=== PATIENT | male | born 1950 | race Caucasian/White ===

== ENCOUNTER 2018-02-18 07:00 | Observation (INO) | payer MEDICARE ==
[2018-02-18] MEDS ORDERED: Nitroglycerin 0.4 MG TAB (25 Tab Bottle) ONE (07:16)
[2018-02-18] MEDS ORDERED: Nitroglycerin 2% Ointment 1 INCH/1 GM Packet ONE (07:16)
[2018-02-18] MEDS ORDERED: Acetaminophen 500 MG TAB ONE (07:23)
[2018-02-18 07:35] LABS: #Basophils 0.1 thou/uL (0.0-0.2); #Eosinphils 0.2 thou/uL (0.0-0.7); #Lymphocytes 1.9 thou/uL (1.20-3.40); #Monocytes 0.6 thou/uL (0.11-0.59); #Neutrophils 8.6 thou/uL (1.40-6.50); %Basophils 1.1 % (0.0-1.0); %Eosinophils 1.7 % (0.0-10.0); %Lymphocytes 16.7 % (21.0-51.0); %Monocytes 5.5 % (0.0-10.0); %Neutrophils 75.1 % (42.0-75.0); Hemoglobin 15.7 g/dL (14.0-18.0); Mean Corpuscular Volume 87.9 fL (78.0-98.0); Mean Platelet Volume 9.5 fL (7.4-10.4); Platelet Count 219 thou/uL (130-400); RBC Distribution Width 11.3 % (11.5-14.5); Red Blood Cell (RBC) Count 5.41 mill/uL (4.70-6.10); White Blood Cell (WBC) Count 11.5 thou/uL (4.8-10.8)
[2018-02-18 07:47] LABS: CK (CPK) 97 U/L (30-200); Lipase 199 U/L (8-78)
[2018-02-18 07:52] LABS: ALT (SGPT) 25 U/L (8-55); AST (SGOT) 24 U/L (5-34); Albumin 4.5 g/dL (3.4-4.8); Alkaline Phosphatase 68 U/L (40-150); Anion Gap 17 mmol/L (10-20); BUN (Urea Nitrogen) 12 mg/dL (8.4-25.7); Bilirubin, Total 0.6 mg/dL (0.2-1.2); Calc. Creatinine Clearance 0 mL/min (70-130); Calcium 9.4 mg/dL (7.8-10.44); Carbon Dioxide 23 mmol/L (23-31); Chloride 106 mmol/L (98-107); Estimated GFR-MDRD Greater than 90; Globulin 2.5 g/dL (2.4-3.5); Glucose 99 mg/dL (80-115); Potassium 4.5 mmol/L (3.5-5.1); Sodium 141 mmol/L (136-145)
--- NOTE | 2018-02-18 08:03 | RAD ---
CHEST ONE VIEW: HISTORY: Chest pain. COMPARISON: Radiograph from 08/22/2016. FINDINGS: The lungs are clear. No pneumothorax or effusion. The cardiac silhouette and mediastinal contours a re within normal limits. No acute osseous abnormality. IMPRESSION: No acute intrathoracic abnormality. POS: [facility]
[2018-02-18] MEDS ORDERED: Morphine 4 MG/ML VIAL ONE (09:37)
[2018-02-18] MEDS ORDERED: ADENOSINE 60 MG/20 ML VIAL ONE (11:48)
[2018-02-18 12:16] LABS: Troponin I Less than 0.010 ng/mL (< 0.028)
[2018-02-18] MEDS ORDERED: Ondansetron PF 4 MG/2 ML Vial IVP PRN (13:41)
[2018-02-18] MEDS ORDERED: Ondansetron ODT 4 MG TAB SL PRN (13:41)
[2018-02-18] MEDS ORDERED: Acetaminophen 325 MG TAB PO PRN (13:41)
[2018-02-18] MEDS ORDERED: D5 1/2 NS w/20 mEq KCL 1,000 ML IV SCH (13:45)
[2018-02-18 15:39] LABS: Troponin I Less than 0.010 ng/mL (< 0.028)
--- NOTE | 2018-02-18 19:38 | NM ---
NUCLEAR MEDICINE CARDIAC STRESS WITH EF AND WALL MOTION: HISTORY: Chest pain. COMPARISON: None. TECHNIQUE: The patient was administered 9 millicuries of technetium 99m sestamibi for rest imaging and 29 millic uries of technetium 99m sestamibi for stress imaging. Cardiac gating was performed. FINDINGS: There is reversibility involving the mid to basal portion of the lateral wall. TID is 1.06. End-diastolic volume is 88 mL. End-systolic volume if 26 mL. CARDIAC GATING: Normal wall motion. Normal wall thickening. EJECTION FRACTION: 70%. IMPRESSION: 1. Reversibility involving the mid to basal portion of the lateral wall of the left ventricle. 2. Ejection fraction 70%. POS: [facility]
[2018-02-18] MEDS ORDERED: ALPRAZolam 0.5 MG TAB PO SCH ×2 (21:00)
[2018-02-18] MEDS ORDERED: Atorvastatin Calcium 40 MG TAB PO SCH (21:00)
[2018-02-19 08:36] VITALS: BP 152/93; TEMP 98.5
[2018-02-19] MEDS ORDERED: OMEGA PO SCH (09:00)
[2018-02-19] MEDS ORDERED: Non-Formulary Item 1 EACH (Multivitamin [Multivitamins] 1 TAB) PO SCH (09:00)
[2018-02-19] MEDS ORDERED: FISH OIL PO SCH (09:00)
[2018-02-19] MEDS ORDERED: [UNRECOGNIZED DRUG - OTHER] PO SCH (09:00)
[2018-02-19] MEDS ORDERED: Fish Oil 1,000 MG CAP PO SCH (09:00)
[2018-02-19] MEDS ORDERED: Aspirin 81 mg Enteric Coated Tablet PO SCH (09:00)
[2018-02-19] MEDS ORDERED: FATTY ACIDS PO SCH (09:00)
[2018-02-19] MEDS ORDERED: Multivit, Therapeutic 1 TAB PO SCH (09:00)
[2018-02-19] MEDS ORDERED: Clopidogrel Bisulfate 75 MG TAB PO SCH (09:00)
--- NOTE | 2018-02-19 11:26 | CON ---
DATE OF CONSULTATION: REASON FOR CONSULTATION: Chest pain. HISTORY OF PRESENT ILLNESS: Mr. Colon is a pleasant 67-year-old gentleman, who was seen and evaluated in the past. He has a history of unstable angina with stent placement to the LAD. He had a chronically occluded diagonal branch present. This is noted a year and a half ago. From a CV standpoint, he states he developed chest pain on . The pain has been constant. He states he pushed himself outdoors and feels like he had a strain. The pain has been constant. It is slowly improving. His CKs and troponins were negative. His recent stress study was performed due to atypical symptoms and previous history of coronary artery disease, it suggested ischemia to the base to mid lateral wall in a small distribution. PAST MEDICAL HISTORY: As above including hyperlipidemia, hypertension, tonsillectomy, and previous stent placement. HOME MEDICATIONS: Include, 1. Zantac. 2. Aspirin. 3. Atorvastatin. 4. Plavix. 5. Metoprolol. ALLERGIES: CIPRO. SOCIAL HISTORY: No current tobacco or alcohol use. REVIEW OF SYSTEMS: A 10-point review of systems is reviewed and as above, otherwise negative. PHYSICAL EXAMINATION: GENERAL: Patient is a pleasant male, who is in no acute distress. The patient appears their stated age. VITAL SIGNS: Blood pressure 152/93, pulse 62, and temperature 98.5. NEUROLOGIC: The patient is alert and oriented x3 with no focal neurologic deficits. HEENT: Sclerae without icterus. Mouth has moist mucous membranes with normal pallor. NECK: No JVD. Carotid upstroke brisk. No bruits bilaterally. LUNGS: Clear to auscultation with unlabored respirations. BACK: No scoliosis or kyphosis. CARDIAC: Regular rate and rhythm with normal S1 and S2. No S3 or S4 noted. No significant rubs, murmurs, thrills, or gallops noted throughout the precordium. PMI is not displaced. There is no parasternal heave. ABDOMEN: Soft, nontender, nondistended. No peritoneal signs present. No hepatosplenomegaly. No abnormal striae. EXTREMITIES: 2+ femoral and 2+ dorsalis pedis pulses. No cyanosis, clubbing, or edema. SKIN: No gross abnormalities. PERTINENT LABORATORY DATA: CK and troponin negative. IMPRESSION: 1. Atypical chest pain. 2. Abnormal stress test. RECOMMENDATIONS: Mr. Colon's symptoms are not suggestive of angina. His stress study did suggest ischemia to the basal to mid lateral wall in a small area, likely representing chronic occlusion to the lateral wall. Given that his symptoms are felt to be atypical, I would recommend medical therapy. His symptoms have improved. He states he feels well. May consider low-dose Imdur with close outpatient followup. He has a followup appointment with me on March 07. Otherwise, continue current medical therapy. Job ID: [id number]
--- NOTE | 2018-02-19 14:57 | STRESS ---
Acquisition Time: 2018-02-18 17:23:00 Total Exercise Time: 00:04:00 Test Indications: CHEST PAIN Medications: Protocol: ADENOSINE Max HR: 074 BPM 48% of Pred: 152 BPM Max BP: 152/080 mmHG Max Work Load: 1.0 METS RESTING ECG: SINUS BRADYCARDIA AT 56BPM SYMPTOMS: NONE NORMAL BP RESPONSE ECTOPY: NONE ECG STRESS: INTREMITTENT 2 DEGREE AV BLOCK INTERPRETATION: NEGATIVE ECG/AWAIT NUCLEAR IMAGES FOR DEFINITIVE DIAGNOSIS Confirmed by ALYCIA PAUL ELLEN ([id number]) on 02/19/2018 2:57:08 PM Referred By: ALYCIA PAUL Confirmed By:ALLI PAUL PA-C
== END 2018-02-19 11:55 | disposition home or self-care (01) ==
LOC: SCSER 07:00 → SCSEROBS 08:03 → 2SW 13:20
PROVIDERS: ADMIT Internal Medicine; ATTEND Internal Medicine
DX: R07.89 Other chest pain (principal); I10 Essential (primary) hypertension; I25.110 Atherosclerotic heart disease of native coronary artery with unstable angina pectoris; E78.5 Hyperlipidemia, unspecified; Z90.89 Acquired absence of other organs; Z95.5 Presence of coronary angioplasty implant and graft; Z88.1 Allergy status to other antibiotic agents; Z79.82 Long term (current) use of aspirin; Z79.02 Long term (current) use of antithrombotics/antiplatelets; Z79.899 Other long term (current) drug therapy
CPT/HCPCS: 71045; 78452; 80053; 82550; 83690; 84484 ×2; 85025; 93005; 93017; 94760; 96374; 99285; A9500; G0378 ×2; 36415; J0153; J2270

== ENCOUNTER 2019-12-04 19:00 | Outpatient (CLI) | payer MEDICARE | END 2019-12-04 19:01 | disposition home or self-care (01) | LOC: SLEEPLAB 19:00 | PROVIDERS: ATTEND Physician Assistant | DX: G47.33 Obstructive sleep apnea (adult) (pediatric) (principal); I10 Essential (primary) hypertension; R06.83 Snoring; I25.10 Atherosclerotic heart disease of native coronary artery without angina pectoris; G47.61 Periodic limb movement disorder | CPT/HCPCS: 95810 ==

== ENCOUNTER 2019-12-18 19:00 | Outpatient (CLI) | payer MEDICARE | END 2019-12-18 19:01 | disposition home or self-care (01) | LOC: SLEEPLAB 19:00 | PROVIDERS: ATTEND Physician Assistant | DX: G47.33 Obstructive sleep apnea (adult) (pediatric) (principal); I25.10 Atherosclerotic heart disease of native coronary artery without angina pectoris; I10 Essential (primary) hypertension; G47.10 Hypersomnia, unspecified; R06.83 Snoring; E66.9 Obesity, unspecified; Z68.25 Body mass index [BMI] 25.0-25.9, adult; Z79.899 Other long term (current) drug therapy; Z95.5 Presence of coronary angioplasty implant and graft; N40.0 Benign prostatic hyperplasia without lower urinary tract symptoms; K86.1 Other chronic pancreatitis; I25.119 Atherosclerotic heart disease of native coronary artery with unspecified angina pectoris; F41.9 Anxiety disorder, unspecified; E78.2 Mixed hyperlipidemia | CPT/HCPCS: 36415; 80053; 80061; 81001; 82043; 82306; 83690; 84153; 84154; 85025; 86141; 95811 ==

== ENCOUNTER 2020-07-30 07:59 | Outpatient (CLI) | payer MEDICARE | END 2020-07-30 08:00 | disposition home or self-care (01) | LOC: BICCT 07:59 | PROVIDERS: ATTEND Internal Medicine | DX: R10.13 Epigastric pain (principal); I71.4 Abdominal aortic aneurysm, without rupture; K86.89 Other specified diseases of pancreas | CPT/HCPCS: 74178 ==

== ENCOUNTER 2020-08-15 12:19 | Outpatient (CLI) | payer MEDICARE ==
[2020-08-15 12:48] LABS: Estimated GFR-MDRD - POC Greater than 90
== END 2020-08-15 12:20 | disposition home or self-care (01) ==
LOC: CT 12:19
PROVIDERS: ATTEND Thoracic Surgery (Cardiothoracic Vascular Surgery)
DX: I71.4 Abdominal aortic aneurysm, without rupture (principal); N20.0 Calculus of kidney
CPT/HCPCS: 74174; 82565

== ENCOUNTER 2020-11-07 11:11 | Emergency (ER) | payer MEDICARE ==
[2020-11-07 12:04] LABS: #Eosinphils 0.1 thou/uL (0.0-0.7); #Lymphocytes 1.8 thou/uL (1.20-3.40); #Monocytes 0.8 thou/uL (0.11-0.59); %Basophils 0.3 % (0.0-1.0); %Eosinophils 1.3 % (0.0-10.0); %Lymphocytes 16.6 % (21.0-51.0); %Monocytes 7.7 % (0.0-10.0); %Neutrophils 74.2 % (42.0-75.0); Hemoglobin 12.8 g/dL (14.0-18.0); Mean Corpuscular Hemoglobin 29.7 pg (27.0-31.0); Mean Corpuscular Volume 89.9 fL (78.0-98.0); Platelet Count 545 thou/uL (130-400); RBC Distribution Width 12.1 % (11.5-14.5); White Blood Cell (WBC) Count 10.8 thou/uL (4.8-10.8)
[2020-11-07 12:21] LABS: ALT (SGPT) 135 U/L (8-55); AST (SGOT) 150 U/L (5-34); Alkaline Phosphatase 203 U/L (40-110); Anion Gap 14 mmol/L (10-20); BUN (Urea Nitrogen) 13 mg/dL (8.4-25.7); Bilirubin, Total 0.6 mg/dL (0.2-1.2); Calc. Creatinine Clearance 0 mL/min (70-130); Calcium 9.3 mg/dL (7.8-10.44); Carbon Dioxide 22 mmol/L (23-31); Chloride 101 mmol/L (98-107); Globulin 2.5 g/dL (2.4-3.5); Glucose 127 mg/dL (80-115); Lipase 75 U/L (8-78); Potassium 4.8 mmol/L (3.5-5.1); Protein, Total 6.5 g/dL (5.8-8.1); Sodium 132 mmol/L (136-145)
[2020-11-07] MEDS ORDERED: diphenhydrAMINE 50 MG/ML VIAL ONE (15:23)
[2020-11-07] MEDS ORDERED: Metoclopramide HCl 10 MG/2 ML VIAL ONE (15:23)
[2020-11-07] MEDS ORDERED: Morphine 4 MG/ML VIAL ONE (16:42)
[2020-11-07] MEDS ORDERED: Ondansetron PF 4 MG/2 ML Vial ONE (16:42)
[2020-11-07 16:52] LABS: Bilirubin Negative (Negative); Blood, Urine Negative (Negative); Clarity Clear (Clear); Glucose, Urine (Dipstick) Normal (Negative); Ketone, Urine Negative (Negative); Leukocyte Negative Leu/uL (Negative); Nitrite Negative (Negative); Protein, Urine (Dipstick) Negative (Neg-Trace); Urobilinogen Normal mg/dL (Less than 2); pH, Urine 6.5 (5.0-9.0)
[2020-11-07 16:54] LABS: Specific Gravity, Urine 1.045 (1.002-1.036)
[2020-11-07] MEDS ORDERED: Benzocaine 20% Spray 60 ML CAN ONE (17:46)
[2020-11-07 18:38] LABS: SARS-CoV-2 NAA Rapid Test Not Detected (NotDetected)
== END 2020-11-07 19:58 | disposition short-term general hospital (02) ==
LOC: ERS 11:11
DX: K31.1 Adult hypertrophic pyloric stenosis (principal); Z20.822 Contact with and (suspected) exposure to COVID-19; E78.5 Hyperlipidemia, unspecified; I10 Essential (primary) hypertension; I25.2 Old myocardial infarction; Z79.899 Other long term (current) drug therapy
CPT/HCPCS: 71045; 74018; 74160; 80053; 81003; 83690; 85025; 93005; U0002; 36415; 96365; 96366; 96375; J1200; J2270; J2405; J2765

== ENCOUNTER 2021-04-04 13:45 | Outpatient (CLI) | payer MEDICARE ==
[2021-04-04 15:05] LABS: Hemoglobin 12.2 g/dL (13.5-17.5); Mean Corpuscular HGB CONC 31.7 g/dL (32.0-36.0); Mean Corpuscular Hemoglobin 28.4 pg (27.0-33.0); Mean Corpuscular Volume 89.7 fl (81.2-95.1); Mean Platelet Volume 10.6 fl (7.4-10.4); Platelet Count 249 10x3/uL (150-450); RBC Distribution Width 14.9 % (11.5-14.5); Red Blood Cell (RBC) Count 4.29 10x6/uL (4.32-5.72); White Blood Cell (WBC) Count 8.2 10x3/uL (3.5-10.5)
[2021-04-04 15:16] LABS: Anion Gap 13 mmol/L (10-20); BUN (Urea Nitrogen) 13 mg/dL (8.4-25.7); Calc. Creatinine Clearance 0 mL/min (70-130); Calcium 8.6 mg/dL (7.8-10.44); Carbon Dioxide 26 mmol/L (23-31); Chloride 107 mmol/L (98-107); Glucose 90 mg/dL (83-110); Potassium 4.5 mmol/L (3.5-5.1); Sodium 141 mmol/L (136-145)
[2021-04-04 21:45] LABS: SARS-CoV-2 PCR by NAA Not Detected (NotDetected)
== END 2021-04-04 13:46 | disposition home or self-care (01) ==
LOC: LABBT 13:45
PROVIDERS: ATTEND Thoracic Surgery (Cardiothoracic Vascular Surgery)
DX: Z01.812 Encounter for preprocedural laboratory examination (principal); I71.4 Abdominal aortic aneurysm, without rupture; Z20.822 Contact with and (suspected) exposure to COVID-19
CPT/HCPCS: 80048; 85027; U0003; U0005

== ENCOUNTER 2021-04-09 06:42 | Day surgery (SDC) | payer MEDICARE ==
[2021-04-07 11:59] VITALS: BMI 20.3
[2021-04-09] MEDS ORDERED: Iopamidol 370 76% 50 ML VIAL FS ONE (08:36)
== END 2021-04-09 16:40 | disposition home or self-care (01) ==
LOC: SDC 06:42
PROVIDERS: ATTEND Thoracic Surgery (Cardiothoracic Vascular Surgery)
PROC: B4101ZZ Fluoroscopy of Abdominal Aorta using Low Osmolar Contrast (ICD-10-PCS; principal; 2021-04-09)
DX: I71.4 Abdominal aortic aneurysm, without rupture (principal); E78.5 Hyperlipidemia, unspecified; I10 Essential (primary) hypertension; I25.10 Atherosclerotic heart disease of native coronary artery without angina pectoris; Z79.02 Long term (current) use of antithrombotics/antiplatelets; Z79.899 Other long term (current) drug therapy; Z88.1 Allergy status to other antibiotic agents
CPT/HCPCS: 36245; 75625; Q9967

== ENCOUNTER 2021-04-11 11:30 | Outpatient (CLI) | payer MEDICARE ==
[2021-04-11 12:34] LABS: Hemoglobin 12.6 g/dL (13.5-17.5); Mean Corpuscular HGB CONC 32.4 g/dL (32.0-36.0); Mean Corpuscular Volume 89.4 fl (81.2-95.1); Mean Platelet Volume 10.9 fl (7.4-10.4); Platelet Count 215 10x3/uL (150-450); Red Blood Cell (RBC) Count 4.35 10x6/uL (4.32-5.72); White Blood Cell (WBC) Count 8.2 10x3/uL (3.5-10.5)
[2021-04-11 13:02] LABS: Anion Gap 14 mmol/L (10-20); BUN (Urea Nitrogen) 13 mg/dL (8.4-25.7); Calc. Creatinine Clearance 0 mL/min (70-130); Calcium 8.9 mg/dL (7.8-10.44); Carbon Dioxide 26 mmol/L (23-31); Chloride 105 mmol/L (98-107); Glucose 87 mg/dL (83-110); Potassium 4.6 mmol/L (3.5-5.1); Sodium 140 mmol/L (136-145)
[2021-04-12 00:49] LABS: SARS-CoV-2 PCR by NAA Not Detected (NotDetected)
== END 2021-04-11 11:31 | disposition home or self-care (01) ==
LOC: LABBT 11:30
PROVIDERS: ATTEND Thoracic Surgery (Cardiothoracic Vascular Surgery)
DX: Z01.812 Encounter for preprocedural laboratory examination (principal); I71.4 Abdominal aortic aneurysm, without rupture; Z20.822 Contact with and (suspected) exposure to COVID-19
CPT/HCPCS: 80048; 85027; 86850; 86900; 86901; U0003; U0005

== ENCOUNTER 2021-04-11 11:45 | Inpatient (IN) | payer OTHER ==
[2021-04-11 12:34] LABS: Hemoglobin 12.6 g/dL (13.5-17.5); Mean Corpuscular HGB CONC 32.4 g/dL (32.0-36.0); Mean Corpuscular Volume 89.4 fl (81.2-95.1); Mean Platelet Volume 10.9 fl (7.4-10.4); Platelet Count 215 10x3/uL (150-450); Red Blood Cell (RBC) Count 4.35 10x6/uL (4.32-5.72); White Blood Cell (WBC) Count 8.2 10x3/uL (3.5-10.5)
[2021-04-11 13:02] LABS: Anion Gap 14 mmol/L (10-20); BUN (Urea Nitrogen) 13 mg/dL (8.4-25.7); Calc. Creatinine Clearance 0 mL/min (70-130); Calcium 8.9 mg/dL (7.8-10.44); Carbon Dioxide 26 mmol/L (23-31); Chloride 105 mmol/L (98-107); Glucose 87 mg/dL (83-110); Potassium 4.6 mmol/L (3.5-5.1); Sodium 140 mmol/L (136-145)
[2021-04-12 00:49] LABS: SARS-CoV-2 PCR by NAA Not Detected (NotDetected)
[2021-04-16] MEDS ORDERED: Lidocaine 1% MPF 2 ML VIAL ONE (08:47)
[2021-04-16] MEDS ORDERED: Heparin 10,000 UNITS/ 10 ML VIAL ONE (09:47)
[2021-04-16] MEDS ORDERED: Bupivacaine PF 0.5% 30 ML VIAL ONE (09:47)
[2021-04-16] MEDS ORDERED: Midazolam HCl 2 mg/2 ml Vial ONE (09:47)
[2021-04-16] MEDS ORDERED: EPINEPHrine 1 MG/ML AMP ONE (09:47)
[2021-04-16] MEDS ORDERED: Protamine Sulfate 50 MG/5 ML VIAL ONE (09:47)
[2021-04-16] MEDS ORDERED: Dexamethasone 4 mg/ml Vial ONE (09:47)
[2021-04-16] MEDS ORDERED: ceFAZolin Sodium (SDC) 2 GM/100 ML BAG ONE (10:08)
[2021-04-16] MEDS ORDERED: Fentanyl 250 MCG/5 ML VIAL ONE ×2 (10:11→13:15)
[2021-04-16] MEDS ORDERED: Dexamethasone 20 MG/5 ML VIAL ONE (10:26)
[2021-04-16] MEDS ORDERED: Glycopyrrolate 0.2 MG/ML 5 ML SYRINGE ONE (10:26)
[2021-04-16] MEDS ORDERED: Rocuronium Bromide 10 MG/ML (10ML VIAL) ONE (10:26)
[2021-04-16] MEDS ORDERED: PROPOFOL 200 MG/20 ML VIAL ONE (10:26)
[2021-04-16] MEDS ORDERED: Ondansetron PF 4 MG/2 ML Vial ONE (10:26)
[2021-04-16] MEDS ORDERED: Lidocaine 1% PF 5 ML VIAL ONE (10:26)
[2021-04-16] MEDS ORDERED: Acetaminophen 325 MG TAB PO PRN (12:03)
[2021-04-16] MEDS ORDERED: HYDROcodone/Acetaminophen 5/325 mg Tablet PO PRN ×2 (12:03)
[2021-04-16] MEDS ORDERED: niCARdipine 25 MG in Sodium Chloride 0.9% 250 ML 250 ML IVPB PRN (12:03)
[2021-04-16] MEDS ORDERED: Phenylephrine 40 MG in Sodium Chloride 0.9% 250 ML 250 ML IVPB PRN (12:03)
[2021-04-16] MEDS ORDERED: hydrALAZINE 20 MG/ML VIAL ONE (12:34)
[2021-04-16] MEDS ORDERED: Promethazine HCl 25 MG/ML VIAL ONE (13:00)
[2021-04-16] MEDS: Sodium Chloride 0.9% 1,000 ML IV SCH (15:46)
[2021-04-16] MEDS: Ondansetron PF 4 MG/2 ML Vial IVP PRN ×2 (15:46→23:10)
[2021-04-16] MEDS: Fentanyl 100 MCG/2 ML VIAL SLOW IVP PRN ×2 (16:01→18:27)
[2021-04-16] MEDS: Losartan 25 MG TAB PO SCH (17:22)
[2021-04-16] MEDS ORDERED: hydrALAZINE 20 MG/ML VIAL SLOW IVP PRN (17:33)
[2021-04-16] MEDS ORDERED: Losartan 25 MG TAB PO SCH (17:45)
[2021-04-16] MEDS: CEFAZOLIN 2 GM, Admixture Fee 1 EACH in Sodium Chloride 0.9% 100 ML IVPB SCH (18:14)
[2021-04-16] MEDS: Promethazine HCl 25 MG/ML VIAL IM PRN (19:22)
[2021-04-16] MEDS: ALPRAZolam 0.5 MG TAB PO SCH (20:17)
[2021-04-16] MEDS: Finasteride 5 MG TAB PO SCH (20:17)
[2021-04-17] MEDS: Promethazine HCl 25 MG/ML VIAL IM PRN (00:11)
[2021-04-17] MEDS: Fentanyl 100 MCG/2 ML VIAL SLOW IVP PRN (00:29)
[2021-04-17] MEDS: CEFAZOLIN 2 GM, Admixture Fee 1 EACH in Sodium Chloride 0.9% 100 ML IVPB SCH ×2 (02:07→09:08)
[2021-04-17] MEDS: Sodium Chloride 0.9% 1,000 ML IV SCH ×2 (02:07→20:25)
[2021-04-17 04:42] LABS: #Lymphocytes 1.3 thou/uL (1.20-3.40); #Monocytes 0.6 thou/uL (0.11-0.59); #Neutrophils 13.9 thou/uL (1.40-6.50); %Eosinophils 0.1 % (0.0-10.0); %Lymphocytes 8.3 % (21.0-51.0); %Monocytes 3.8 % (0.0-10.0); %Neutrophils 87.8 % (42.0-75.0); Hemoglobin 13.4 g/dL (14.0-18.0); Mean Corpuscular HGB CONC 32.5 g/dL (32.0-36.0); Mean Corpuscular Hemoglobin 29.5 pg (27.0-31.0); Mean Corpuscular Volume 90.9 fL (78.0-98.0); Mean Platelet Volume 8.2 fL (7.4-10.4); Platelet Count 247 thou/uL (130-400); Red Blood Cell (RBC) Count 4.53 mill/uL (4.70-6.10); White Blood Cell (WBC) Count 15.9 thou/uL (4.8-10.8)
[2021-04-17] MEDS: Ondansetron PF 4 MG/2 ML Vial IVP PRN (04:47)
[2021-04-17 05:01] LABS: Anion Gap 15 mmol/L (10-20); BUN (Urea Nitrogen) 11 mg/dL (8.4-25.7); Calc. Creatinine Clearance 81 mL/min (70-130); Calcium 8.6 mg/dL (7.8-10.44); Carbon Dioxide 18 mmol/L (23-31); Chloride 105 mmol/L (98-107); Glucose 124 mg/dL (83-110); Sodium 134 mmol/L (136-145)
[2021-04-17] MEDS: Clopidogrel Bisulfate 75 MG TAB PO SCH (07:52)
[2021-04-17 09:46] VITALS: BMI 21.0
[2021-04-17] MEDS: Losartan 25 MG TAB PO SCH (20:25)
[2021-04-17] MEDS: Finasteride 5 MG TAB PO SCH (20:25)
[2021-04-17] MEDS: ALPRAZolam 0.5 MG TAB PO SCH (20:25)
[2021-04-18] MEDS: Sodium Chloride 0.9% 1,000 ML IV SCH (05:05)
[2021-04-18] MEDS: Clopidogrel Bisulfate 75 MG TAB PO SCH (08:16)
[2021-04-18 08:47] VITALS: BP 151/70; TEMP 98.5
== END 2021-04-18 09:30 | disposition home or self-care (01) | DRG 269 ==
LOC: SURG A 04-16 08:28 → CCU 04-16 14:32 → SURG A 04-17 19:46
PROVIDERS: ADMIT Thoracic Surgery (Cardiothoracic Vascular Surgery); ATTEND Thoracic Surgery (Cardiothoracic Vascular Surgery)
PROC: 04V03DZ Restriction of Abdominal Aorta with Intraluminal Device, Percutaneous Approach (ICD-10-PCS; principal; 2021-04-16)
DX: I71.4 Abdominal aortic aneurysm, without rupture (principal); Z20.822 Contact with and (suspected) exposure to COVID-19; I10 Essential (primary) hypertension; E78.5 Hyperlipidemia, unspecified; F41.9 Anxiety disorder, unspecified; Z90.89 Acquired absence of other organs; Z88.1 Allergy status to other antibiotic agents; Z95.5 Presence of coronary angioplasty implant and graft; Z79.02 Long term (current) use of antithrombotics/antiplatelets; Z79.899 Other long term (current) drug therapy
CPT/HCPCS: 76000; 80048; 85025; 85027; 86850; 86900; 86901; C1725; C1768; C1776; J0171; J0360; J0690; J1100; J1642; J1644; J2250; J2405; J2550; J2704; J2720; J3010; J3490; J7050; S0020; U0003; U0005

== ENCOUNTER 2021-10-05 11:24 | Observation (INO) | payer OTHER ==
[2021-10-05 11:40] VITALS: BMI 22.1
[2021-10-05] MEDS ORDERED: Acetaminophen 650 MG Suppository PR PRN (11:45)
[2021-10-05] MEDS ORDERED: Acetaminophen 325 MG TAB PO PRN (11:45)
[2021-10-05] MEDS: Ondansetron PF 4 MG/2 ML Vial IVP PRN ×2 (12:06→18:27)
[2021-10-05] MEDS: Sodium Chloride 0.9% 1,000 ML IV SCH (12:06)
[2021-10-05] MEDS ORDERED: hydrALAZINE 20 MG/ML VIAL SLOW IVP PRN (12:09)
[2021-10-05] MEDS: Enalaprilat Dihydrate 1.25 MG/ML VIAL SLOW IVP SCH (18:28)
[2021-10-05] MEDS ORDERED: Losartan 25 MG TAB PO SCH (21:00)
[2021-10-05] MEDS ORDERED: Finasteride 5 MG TAB PO SCH (21:00)
[2021-10-05] MEDS ORDERED: Ezetimibe 10 MG TAB PO SCH (21:00)
[2021-10-05] MEDS ORDERED: ALPRAZolam 0.5 MG TAB PO SCH ×2 (21:00)
[2021-10-05] MEDS ORDERED: OLMESARTAN MEDOXOMIL 20 MG PO SCH (21:00)
[2021-10-06] MEDS: Enalaprilat Dihydrate 1.25 MG/ML VIAL SLOW IVP SCH ×2 (00:39→05:52)
[2021-10-06] MEDS: Sodium Chloride 0.9% 1,000 ML IV SCH (01:10)
[2021-10-06 04:43] LABS: #Eosinphils 0.1 thou/uL (0.0-0.7); #Lymphocytes 3.2 thou/uL (1.20-3.40); #Neutrophils 9.2 thou/uL (1.40-6.50); %Basophils 0.1 % (0.0-1.0); %Eosinophils 0.6 % (0.0-10.0); %Lymphocytes 23.6 % (21.0-51.0); %Monocytes 7.7 % (0.0-10.0); %Neutrophils 68.1 % (42.0-75.0); Mean Corpuscular HGB CONC 33.6 g/dL (32.0-36.0); Mean Corpuscular Hemoglobin 30.9 pg (27.0-31.0); Mean Corpuscular Volume 91.9 fL (78.0-98.0); Mean Platelet Volume 8.4 fL (7.4-10.4); Platelet Count 218 thou/uL (130-400); RBC Distribution Width 12.6 % (11.5-14.5); Red Blood Cell (RBC) Count 4.86 mill/uL (4.70-6.10); White Blood Cell (WBC) Count 13.6 thou/uL (4.8-10.8)
[2021-10-06 05:09] LABS: Anion Gap 12 mmol/L (10-20); BUN (Urea Nitrogen) 10 mg/dL (8.4-25.7); Calc. Creatinine Clearance 76 mL/min (70-130); Calcium 8.6 mg/dL (7.8-10.44); Carbon Dioxide 21 mmol/L (23-31); Chloride 107 mmol/L (98-107); Estimated GFR 95; Glucose 96 mg/dL (83-110); Potassium 3.4 mmol/L (3.5-5.1); Sodium 137 mmol/L (136-145)
[2021-10-06] MEDS: Ondansetron PF 4 MG/2 ML Vial IVP PRN ×2 (05:52→12:51)
[2021-10-06] MEDS ORDERED: Clopidogrel Bisulfate 75 MG TAB PO SCH (09:00)
[2021-10-06] MEDS ORDERED: Enoxaparin Sodium 40 MG/0.4 ML SYRINGE SC SCH (09:00)
[2021-10-06 11:40] VITALS: BP 186/82; TEMP 98.5
[2021-10-06] MEDS ORDERED: Potassium Chloride 20 MEQ TAB PO SCH (13:15)
[2021-10-06] MEDS ORDERED: Scopolamine 1.5 mg/72 hour Patch TD SCH (14:00)
== END 2021-10-06 15:49 | disposition home or self-care (01) ==
LOC: INTOOBSV 11:24 → 2NO 11:24
PROVIDERS: ADMIT Internal Medicine; ATTEND Internal Medicine
DX: K52.9 Noninfective gastroenteritis and colitis, unspecified (principal); E87.6 Hypokalemia; I25.10 Atherosclerotic heart disease of native coronary artery without angina pectoris; I10 Essential (primary) hypertension; E78.5 Hyperlipidemia, unspecified; F12.10 Cannabis abuse, uncomplicated; Z79.02 Long term (current) use of antithrombotics/antiplatelets; Z79.899 Other long term (current) drug therapy; Z88.1 Allergy status to other antibiotic agents; Z95.5 Presence of coronary angioplasty implant and graft; Z20.822 Contact with and (suspected) exposure to COVID-19
CPT/HCPCS: 80048; 85025; U0003; U0005; 36415; 96372; 96374; 96375; 96376; G0378; J0360; J1650; J2405; J7050

== ENCOUNTER 2021-10-09 21:24 | Observation (INO) | payer OTHER ==
[2021-10-09] MEDS ORDERED: Morphine 4 MG/ML VIAL ONE (21:59)
[2021-10-09] MEDS ORDERED: Ondansetron PF 4 MG/2 ML Vial ONE (21:59)
[2021-10-09 22:48] LABS: #Lymphocytes 1.9 thou/uL (1.20-3.40); #Monocytes 0.8 thou/uL (0.11-0.59); #Neutrophils 8.2 thou/uL (1.40-6.50); %Basophils 0.1 % (0.0-1.0); %Eosinophils 0.4 % (0.0-10.0); %Lymphocytes 17.3 % (21.0-51.0); %Neutrophils 75.2 % (42.0-75.0); Hemoglobin 14.8 g/dL (14.0-18.0); Mean Corpuscular HGB CONC 34.4 g/dL (32.0-36.0); Mean Corpuscular Hemoglobin 30.8 pg (27.0-31.0); Mean Corpuscular Volume 89.6 fL (78.0-98.0); Mean Platelet Volume 8.1 fL (7.4-10.4); Platelet Count 225 thou/uL (130-400); RBC Distribution Width 12.5 % (11.5-14.5); White Blood Cell (WBC) Count 10.9 thou/uL (4.8-10.8)
[2021-10-09 23:17] LABS: ALT (SGPT) 28 U/L (8-55); AST (SGOT) 22 U/L (5-34); Albumin 4.1 g/dL (3.4-4.8); Alkaline Phosphatase 92 U/L (40-110); Anion Gap 15 mmol/L (10-20); BUN (Urea Nitrogen) 13 mg/dL (8.4-25.7); Bilirubin, Total 0.8 mg/dL (0.2-1.2); CK (CPK) 119 U/L (30-200); Calc. Creatinine Clearance 0 mL/min (70-130); Calcium 8.9 mg/dL (7.8-10.44); Carbon Dioxide 21 mmol/L (23-31); Chloride 103 mmol/L (98-107); Estimated GFR 96; Globulin 2.1 g/dL (2.4-3.5); Glucose 108 mg/dL (83-110); Lipase 28 U/L (8-78); Potassium 3.1 mmol/L (3.5-5.1); Protein, Total 6.2 g/dL (5.8-8.1); Sodium 136 mmol/L (136-145)
[2021-10-09 23:41] LABS: Bacteria/HPF None Seen HPF (None Seen); Bilirubin Negative (Negative); Blood, Urine Trace (Negative); Calcium Oxalate Crystals 1+ HPF (None Seen); Clarity Clear (Clear); Glucose, Urine (Dipstick) Normal (Negative); Ketone, Urine 80 mg/dL (Negative); Leukocyte Negative Leu/uL (Negative); Mucous/LPF 1+ LPF (<2+); Nitrite Negative (Negative); Protein, Urine (Dipstick) 20 mg/dL (Neg-Trace); RBC/HPF 0-3 HPF (0-3); Specific Gravity, Urine 1.019 (1.002-1.036); Squamous Epithelial None Seen HPF (0-3); WBC/HPF 0-3 HPF (0-3); pH, Urine 6.5 (5.0-9.0)
[2021-10-10] MEDS ORDERED: Potassium Chloride 20 MEQ TAB ONE (00:05)
[2021-10-10] MEDS ORDERED: Ondansetron PF 4 MG/2 ML Vial IVP PRN ×2 (00:15→02:13)
[2021-10-10] MEDS ORDERED: Sodium Chloride 0.9% 1,000 ML IV SCH (00:15)
[2021-10-10] MEDS ORDERED: Ondansetron ODT 4 MG TAB SL PRN (00:15)
[2021-10-10 01:21] VITALS: BMI 21.6
[2021-10-10] MEDS ORDERED: Ondansetron ODT 4 MG TAB PO PRN (02:13)
[2021-10-10] MEDS ORDERED: Acetaminophen 325 MG TAB PO PRN (02:13)
[2021-10-10] MEDS ORDERED: HYDROcodone/Acetaminophen 5/325 mg Tablet PO PRN (02:13)
[2021-10-10] MEDS ORDERED: hydrALAZINE 20 MG/ML VIAL SLOW IVP PRN (02:54)
[2021-10-10] MEDS: Sodium Chloride 0.9% 1,000 ML IV SCH ×3 (03:15→15:04)
[2021-10-10] MEDS ORDERED: Promethazine HCl 25 MG/ML VIAL IM PRN (05:09)
[2021-10-10 06:24] LABS: #Lymphocytes 1.8 thou/uL (1.20-3.40); #Monocytes 0.6 thou/uL (0.11-0.59); #Neutrophils 6.7 thou/uL (1.40-6.50); %Basophils 0.3 % (0.0-1.0); %Eosinophils 0.5 % (0.0-10.0); %Monocytes 6.5 % (0.0-10.0); %Neutrophils 72.7 % (42.0-75.0); Hemoglobin 13.4 g/dL (14.0-18.0); Mean Corpuscular HGB CONC 32.9 g/dL (32.0-36.0); Mean Corpuscular Hemoglobin 29.9 pg (27.0-31.0); Mean Platelet Volume 8.2 fL (7.4-10.4); Platelet Count 214 thou/uL (130-400); RBC Distribution Width 12.6 % (11.5-14.5); Red Blood Cell (RBC) Count 4.46 mill/uL (4.70-6.10); White Blood Cell (WBC) Count 9.2 thou/uL (4.8-10.8)
[2021-10-10 06:54] LABS: Anion Gap 14 mmol/L (10-20); BUN (Urea Nitrogen) 10 mg/dL (8.4-25.7); Calc. Creatinine Clearance 85 mL/min (70-130); Calcium 8.1 mg/dL (7.8-10.44); Carbon Dioxide 19 mmol/L (23-31); Chloride 106 mmol/L (98-107); Estimated GFR 99; Glucose 97 mg/dL (83-110); Magnesium 1.6 mg/dL (1.6-2.6); Potassium 3.8 mmol/L (3.5-5.1); Sodium 135 mmol/L (136-145)
[2021-10-10 08:29] LABS: Hemoglobin A1c 5.5 % (4.0-6.0)
[2021-10-10] MEDS: Clopidogrel Bisulfate 75 MG TAB PO SCH (09:51)
[2021-10-10] MEDS: Enoxaparin Sodium 30 MG/0.3 ML SYRINGE SC SCH (09:51)
[2021-10-10 12:33] LABS: SARS-CoV-2 NAA Rapid Test Not Detected (NotDetected)
[2021-10-10 17:00] LABS: Campy jejuni + coli by PCR Negative (Negative); STEC Shiga Toxin 1+2 Negative (Negative); Salmonella spp. by PCR Negative (Negative); Shigella spp + EIEC by PCR Negative (Negative)
[2021-10-10] MEDS ORDERED: ALPRAZolam 0.5 MG TAB PO SCH (21:00)
[2021-10-10] MEDS ORDERED: Finasteride 5 MG TAB PO SCH (21:00)
[2021-10-10] MEDS ORDERED: Losartan 25 MG TAB PO SCH (21:00)
[2021-10-10] MEDS ORDERED: Ezetimibe 10 MG TAB PO SCH (21:00)
[2021-10-11 06:44] LABS: #Basophils 0.1 thou/uL (0.0-0.2); #Eosinphils 0.1 thou/uL (0.0-0.7); #Lymphocytes 2.2 thou/uL (1.20-3.40); #Monocytes 0.8 thou/uL (0.11-0.59); #Neutrophils 7.1 thou/uL (1.40-6.50); %Basophils 0.6 % (0.0-1.0); %Eosinophils 1.2 % (0.0-10.0); %Lymphocytes 21.3 % (21.0-51.0); %Monocytes 8.1 % (0.0-10.0); %Neutrophils 68.9 % (42.0-75.0); Hemoglobin 14.5 g/dL (14.0-18.0); Mean Corpuscular HGB CONC 33.3 g/dL (32.0-36.0); Mean Corpuscular Hemoglobin 30.2 pg (27.0-31.0); Mean Corpuscular Volume 90.7 fL (78.0-98.0); Mean Platelet Volume 7.8 fL (7.4-10.4); Platelet Count 228 thou/uL (130-400); RBC Distribution Width 12.5 % (11.5-14.5); White Blood Cell (WBC) Count 10.3 thou/uL (4.8-10.8)
[2021-10-11 07:12] LABS: ALT (SGPT) 39 U/L (8-55); AST (SGOT) 31 U/L (5-34); Albumin 3.7 g/dL (3.4-4.8); Alkaline Phosphatase 95 U/L (40-110); Anion Gap 14 mmol/L (10-20); BUN (Urea Nitrogen) 9 mg/dL (8.4-25.7); Bilirubin, Direct 0.4 mg/dL (0.1-0.3); Bilirubin, Total 0.9 mg/dL (0.2-1.2); Calc. Creatinine Clearance 82 mL/min (70-130); Calcium 8.6 mg/dL (7.8-10.44); Carbon Dioxide 21 mmol/L (23-31); Cardiac Risk 2.7 (Less than 4.5); Chloride 105 mmol/L (98-107); Cholesterol 114 mg/dl (< 200 Desired); Estimated GFR 98; Glucose 86 mg/dL (83-110); HDL Cholesterol 42 mg/dL (>60 Neg Risk); LDL Cholesterol, Calculated 59 mg/dL; Magnesium 1.7 mg/dL (1.6-2.6); Potassium 3.9 mmol/L (3.5-5.1); Protein, Total 5.7 g/dL (5.8-8.1); Sodium 136 mmol/L (136-145); Triglycerides 65 mg/dL (Less than 150)
[2021-10-11 07:27] LABS: HBCM Index 0.27 S/CO (0-0.79); HBSAg Index 0.25 S/CO (0-0.99); Hep A IgM AB Non-Reactive (NonReactive); Hep A IgM S/CO 0.11 S/CO (0-0.79); Hep B Surf Ag Non-Reactive S/CO (NonReactive); Hep C IgG Ab Non-Reactive (NonReactive); Hep C Index 0.05 S/CO (0-0.79); Hepatitis B Core IgM Abs Non-Reactive (NonReactive)
[2021-10-11 08:02] VITALS: BP 160/76; TEMP 97.8
[2021-10-11] MEDS: Enoxaparin Sodium 30 MG/0.3 ML SYRINGE SC SCH (08:28)
[2021-10-11] MEDS: Clopidogrel Bisulfate 75 MG TAB PO SCH (08:29)
[2021-10-11] MEDS: Sodium Chloride 0.9% 1,000 ML IV SCH (08:30)
[2021-10-11] MEDS ORDERED: Finasteride 5 MG TAB PO SCH (09:00)
[2021-10-14 21:38] LABS: Norovirus GI Negative (Negative); Norovirus GII Negative (Negative)
== END 2021-10-11 14:21 | disposition home or self-care (01) ==
LOC: ERS 21:24 → T4-A 10-10 00:03
PROVIDERS: ADMIT Internal Medicine; ATTEND Internal Medicine
DX: R11.2 Nausea with vomiting, unspecified (principal); R19.7 Diarrhea, unspecified; I25.10 Atherosclerotic heart disease of native coronary artery without angina pectoris; I10 Essential (primary) hypertension; E78.5 Hyperlipidemia, unspecified; Z20.822 Contact with and (suspected) exposure to COVID-19; Z79.899 Other long term (current) drug therapy; Z88.1 Allergy status to other antibiotic agents; Z95.5 Presence of coronary angioplasty implant and graft
CPT/HCPCS: 0240U; 71045; 80048 ×2; 80053; 80061; 80074; 80076; 82550; 83036; 83690; 83735 ×2; 83880; 84443; 84484; 85025 ×3; 87324; 87449; 87505; 87798 ×2; 93005; 96372 ×2; 96374; 96375; 96376; 99285; G0378 ×3; 36415; 81003; 81015; J1650; J2270; J2405; J2550; J7050; Q0162

== ENCOUNTER 2021-10-23 15:01 | Emergency (ER) | payer OTHER ==
[~2021-10-23 15:01] MED LIST: Iopamidol-370 76% 500 ML 1 ML ONE
[2021-10-23 16:46] LABS: #Basophils 0.1 thou/uL (0.0-0.2); #Lymphocytes 1.7 thou/uL (1.20-3.40); #Monocytes 0.4 thou/uL (0.11-0.59); #Neutrophils 9.9 thou/uL (1.40-6.50); %Basophils 0.5 % (0.0-1.0); %Eosinophils 0.1 % (0.0-10.0); %Lymphocytes 13.9 % (21.0-51.0); %Monocytes 3.4 % (0.0-10.0); %Neutrophils 82.2 % (42.0-75.0); Hemoglobin 14.7 g/dL (14.0-18.0); Mean Corpuscular HGB CONC 33.3 g/dL (32.0-36.0); Mean Corpuscular Hemoglobin 30.5 pg (27.0-31.0); Mean Corpuscular Volume 91.5 fL (78.0-98.0); Mean Platelet Volume 7.7 fL (7.4-10.4); Platelet Count 300 thou/uL (130-400); RBC Distribution Width 12.3 % (11.5-14.5); Red Blood Cell (RBC) Count 4.82 mill/uL (4.70-6.10)
[2021-10-23 17:11] LABS: ALT (SGPT) 59 U/L (8-55); AST (SGOT) 38 U/L (5-34); Albumin 4.3 g/dL (3.4-4.8); Alkaline Phosphatase 120 U/L (40-110); Anion Gap 14 mmol/L (10-20); BUN (Urea Nitrogen) 9 mg/dL (8.4-25.7); Bilirubin, Total 0.7 mg/dL (0.2-1.2); Calc. Creatinine Clearance 0 mL/min (70-130); Calcium 9.1 mg/dL (7.8-10.44); Carbon Dioxide 24 mmol/L (23-31); Chloride 102 mmol/L (98-107); Estimated GFR 97; Globulin 2.5 g/dL (2.4-3.5); Glucose 113 mg/dL (83-110); Potassium 3.9 mmol/L (3.5-5.1); Protein, Total 6.8 g/dL (5.8-8.1); Sodium 136 mmol/L (136-145)
[2021-10-23] MEDS ORDERED: Ondansetron PF 4 MG/2 ML Vial ONE (18:41)
[2021-10-23] MEDS ORDERED: Morphine 4 MG/ML VIAL ONE (18:41)
[2021-10-23] MEDS ORDERED: Ketorolac Tromethamine 30 MG/ML VIAL ONE (18:51)
== END 2021-10-23 21:13 | disposition home or self-care (01) ==
LOC: ERS 15:01
DX: K52.9 Noninfective gastroenteritis and colitis, unspecified (principal); R74.01 Elevation of levels of liver transaminase levels; I10 Essential (primary) hypertension; E78.5 Hyperlipidemia, unspecified; I25.2 Old myocardial infarction; Z79.899 Other long term (current) drug therapy
CPT/HCPCS: 36415; 71045; 74177; 80053; 83690; 84484; 85025; 93005; J1885; J2270; J2405; Q9967

== ENCOUNTER 2023-07-27 06:23 | Day surgery (SDC) | payer MEDICARE ==
[2023-07-26 08:21] VITALS: BMI 21.1
[2023-07-27] MEDS ORDERED: Bupivacaine PF 0.5% 30 ML VIAL ONE (06:40)
[2023-07-27] MEDS ORDERED: EPINEPHrine 1 MG/ML VIAL ONE (06:40)
[2023-07-27] MEDS ORDERED: Heparin 5,000 UNITS/ML VIAL ONE (06:40)
[2023-07-27] MEDS ORDERED: PROPOFOL 20 ML ONE ×2 (07:14→07:36)
[2023-07-27] MEDS ORDERED: Dexmedetomidine 200 MCG/2 ML VIAL ONE (07:16)
[2023-07-27] MEDS ORDERED: Lidocaine 1% PF 5 ML VIAL ONE (07:16)
[2023-07-27] MEDS ORDERED: CEFAZOLIN 2 GM VIAL ONE (07:18)
[2023-07-27] MEDS ORDERED: Sodium Chloride 0.9% 100 ML ONE (07:18)
[2023-07-27] MEDS ORDERED: Midazolam HCl 2 mg/2 ml Vial ONE (07:24)
[2023-07-27] MEDS ORDERED: fentaNYL PF 100 MCG/2 ML SYRINGE ONE (07:41)
[2023-07-27] MEDS ORDERED: Heparin 10,000 UNITS/ 10 ML VIAL ONE (08:08)
[2023-07-27] MEDS ORDERED: hydrALAZINE 20 MG/ML VIAL ONE (08:29)
[2023-07-27] MEDS ORDERED: Ondansetron PF 4 MG/2 ML Vial ONE ×3 (08:39→12:05)
[2023-07-27] MEDS ORDERED: Promethazine HCl 25 MG/ML VIAL ONE (09:00)
[2023-07-27] MEDS ORDERED: diphenhydrAMINE 50 MG/ML VIAL ONE (11:42)
[2023-07-27] MEDS ORDERED: Haloperidol Lactate 5 MG/ML VIAL ONE (12:15)
== END 2023-07-27 14:41 | disposition home or self-care (01) ==
LOC: SDC 06:23
PROVIDERS: ATTEND Thoracic Surgery (Cardiothoracic Vascular Surgery)
PROC: 047C341 Dilation of Right Common Iliac Artery with Drug-eluting Intraluminal Device, using Drug-Coated Balloon, Percutaneous Approach (ICD-10-PCS; principal; 2023-07-27)
DX: I74.5 Embolism and thrombosis of iliac artery (principal); I73.9 Peripheral vascular disease, unspecified; E78.5 Hyperlipidemia, unspecified; F41.9 Anxiety disorder, unspecified; N40.0 Benign prostatic hyperplasia without lower urinary tract symptoms; K90.81 Whipple's disease
CPT/HCPCS: 37221; J0171; J0360; J0665; J1200; J1630; J1644 ×2; J2250; J2405; J2550; J2704; J3490; C1725; C1876; C1894